=== PATIENT | female | born 1975 | race Hispanic/Latino ===

== ENCOUNTER 2020-12-20 00:30 | Emergency (ER) | payer OTHER ==
[2020-12-20] MEDS ORDERED: DEXAMETHASONE SOD PHOSPHATE 10MG/ML 1ML VIAL ONE (01:19)
[2020-12-20] MEDS ORDERED: LORAZEPAM 1 MG TABLET ONE (01:20)
[2020-12-20] MEDS ORDERED: KETOROLAC TROMETHAMINE 60 MG/2 ML VIAL ONE (01:20)
[2020-12-20] MEDS ORDERED: HYDROMORPHONE 1 MG/1 ML AMP ONE (01:20)
== END 2020-12-20 03:15 | disposition home or self-care (01) ==
LOC: EDH 00:30
DX: M43.6 Torticollis (principal); Z98.51 Tubal ligation status; Z98.890 Other specified postprocedural states
CPT/HCPCS: 72040; 96372 ×3; 99284; J1100; J1170; J1885

== ENCOUNTER 2021-05-19 09:44 | Day surgery (SDC) | payer MEDICAID ==
[2021-05-18 11:35] LABS: HEMATOCRIT 39.2 % (36-48)
[~2021-05-19] VITALS: Ht 152.4 cm; Wt 77.0 kg
[2021-05-19 13:37] VITALS: BP 137/68
[2021-05-20] VITALS (17 sets, daily range): BP systolic 108–136; BP diastolic 54–78
[2021-05-20] MEDS ORDERED: LACTATED RINGERS 1000ML 1,000 ML IV ONE (10:01)
[2021-05-20] MEDS: CEFAZOLIN SODIUM 1 GM VIAL ONE ×2 (10:55→11:45)
[2021-05-20] MEDS ORDERED: GENTAMICIN SULFATE 80 MG/2 ML VIAL ONE (10:55)
[2021-05-20] MEDS ORDERED: CEFAZOLIN SODIUM 1 GM VIAL ONE (10:55)
[2021-05-20] MEDS ORDERED: METHYLENE BLUE 5 MG/ML AMP ONE (10:56)
[2021-05-20] MEDS ORDERED: LIDOCAINE HCL MPF 1% 5ML VIAL ONE (11:25)
[2021-05-20] MEDS ORDERED: MIDAZOLAM HCL 1 MG/ML 2ML VIAL ONE (11:25)
[2021-05-20] MEDS ORDERED: PROPOFOL 10 MG/ML 20ML VIAL IV ONE (11:26)
[2021-05-20] MEDS ORDERED: ROCURONIUM 10MG/1ML SYR 10 MG/ML ML ONE (11:26)
[2021-05-20] MEDS ORDERED: FENTANYL CITRATE PF 50 MCG/1 ML 2ML VIAL ONE (11:26)
[2021-05-20] MEDS ORDERED: LIDOCAINE 1%-EPI 1:100,000 20 ML VIAL IJ SCH (11:30)
[2021-05-20] MEDS ORDERED: EPHEDRINE SULFATE 50 MG/ML AMPULE ONE (12:34)
[2021-05-20] MEDS ORDERED: BACITRACIN 28.4 GM OINT TP ONE (12:58)
[2021-05-20] MEDS ORDERED: GLYCOPYRROLATE 1 MG/5 ML SYRINGE ONE (13:00)
[2021-05-20] MEDS ORDERED: NEOSTIGMINE 5MG/5ML SYR IV ONE (13:01)
[2021-05-20] MEDS ORDERED: MEPERIDINE-PF 25 MG/ML SYG ONE (13:28)
[2021-05-25] MEDS ORDERED: CEFAZOLIN SODIUM 1 GM VIAL IVP SCH (06:00)
== END 2021-05-20 15:05 | disposition home or self-care (01) ==
LOC: DAH 09:44
PROVIDERS: ATTEND Plastic Surgery
DX: L73.2 Hidradenitis suppurativa (principal); L90.5 Scar conditions and fibrosis of skin; S41.102A Unspecified open wound of left upper arm, initial encounter; E66.9 Obesity, unspecified; Z79.899 Other long term (current) drug therapy; Z98.890 Other specified postprocedural states; Z83.3 Family history of diabetes mellitus; X58.XXXA Exposure to other specified factors, initial encounter
CPT/HCPCS: 13121; 13122; 15002; 15003 ×3; 15271; 15272; 36415; 81025; 85014; 85018; 87426; 88304; A4215; A4221; A4222; A4223; A4606; A4649; A4663; A6223; A6260; J0690 ×2; J1580; J2175; J2250; J2710; J3010; J3490 ×5; J7040; J7120; Q4105; J2704; Q9968

== ENCOUNTER 2021-06-03 07:30 | Day surgery (SDC) | payer MEDICAID ==
[2021-06-02 15:55] VITALS: BP 121/52
[~2021-06-03] VITALS: Ht 152.4 cm; Wt 75.9 kg
[2021-06-03] VITALS (17 sets, daily range): BP systolic 93–129; BP diastolic 46–72
[2021-06-03] MEDS ORDERED: LACTATED RINGERS 1000ML 1,000 ML IV ONE (08:21)
[2021-06-03] MEDS: CEFAZOLIN SODIUM 1 GM VIAL ONE ×2 (08:26→09:38)
[2021-06-03] MEDS ORDERED: CEFAZOLIN SODIUM 1 GM VIAL ONE (08:55)
[2021-06-03] MEDS ORDERED: BUPIVACAINE/EPI/PF 0.25% 30ML VIAL IJ ONE (08:55)
[2021-06-03] MEDS ORDERED: GENTAMICIN SULFATE 80 MG/2 ML VIAL ONE (08:55)
[2021-06-03] MEDS ORDERED: LIDOCAINE PF 100MG/5ML (2%) SYRINGE 5ML ONE (09:06)
[2021-06-03] MEDS ORDERED: DEXAMETHASONE SOD PHOSPHATE 10MG/ML 1ML VIAL ONE (09:06)
[2021-06-03] MEDS ORDERED: ONDANSETRON 4MG INJ ONE (09:06)
[2021-06-03] MEDS ORDERED: MIDAZOLAM HCL 1 MG/ML 2ML VIAL ONE (09:06)
[2021-06-03] MEDS ORDERED: PROPOFOL 10 MG/ML 20ML VIAL IV ONE (09:07)
[2021-06-03] MEDS ORDERED: FENTANYL CITRATE PF 50 MCG/1 ML 2ML VIAL ONE (09:07)
[2021-06-03] MEDS ORDERED: GLYCOPYRROLATE 1 MG/5 ML SYRINGE ONE (09:24)
[2021-06-03] MEDS ORDERED: EPHEDRINE SULFATE 50 MG/ML AMPULE ONE (09:32)
== END 2021-06-03 12:25 | disposition home or self-care (01) ==
LOC: DAH 07:30
PROVIDERS: ATTEND Plastic Surgery
DX: S41.102A Unspecified open wound of left upper arm, initial encounter (principal); Z20.822 Contact with and (suspected) exposure to COVID-19; L90.5 Scar conditions and fibrosis of skin; L73.2 Hidradenitis suppurativa; K21.9 Gastro-esophageal reflux disease without esophagitis; E66.9 Obesity, unspecified; Z98.890 Other specified postprocedural states; Z98.51 Tubal ligation status; Z98.891 History of uterine scar from previous surgery; Z83.3 Family history of diabetes mellitus; Z79.899 Other long term (current) drug therapy; Z68.44 Body mass index [BMI] 60.0-69.9, adult
CPT/HCPCS: 15002; 15100; 81025; 87635; A4215; A4221; A4222; A4223; A4600; A4606; A4663; A4930; C9803; J0690 ×2; J1100; J1580; J2250; J2405; J3010; J3490 ×4; J7120; S0020; J2001; J2704

== ENCOUNTER 2021-06-26 08:02 | Emergency (ER) | payer MEDICAID ==
[~2021-06-26] VITALS: Ht 154.9 cm; Wt 74.4 kg
[2021-06-26] MEDS ORDERED: SOLU-MEDROL 125MG VIAL IVP ONE (08:30)
[2021-06-26] MEDS ORDERED: FAMOTIDINE 20MG VIAL IV ONE (08:30)
[2021-06-26] MEDS ORDERED: DEXAMETHASONE SOD PHOSPHATE 4 MG/ML 1ML VIAL IM SCH (09:30)
[2021-06-26] MEDS ORDERED: LORA10TA7 PO (09:42)
[2021-06-26] MEDS ORDERED: PRED10TA23 PO (09:42)
[2021-06-26] MEDS ORDERED: 0.9%NACL 1000ML 1,000 ML IV ONE ×2 (10:13→10:30)
[2021-06-26 10:26] VITALS: BP 117/58
[2021-06-26] MEDS ORDERED: PREDNISOLONE 15 MG/5 ML SOLN PO SCH (10:30)
[2021-06-26] MEDS ORDERED: DiphenhydrAMINE HCL 50 MG/ML VIAL IV ONE (10:30)
== END 2021-06-26 11:24 | disposition home or self-care (01) ==
LOC: EDH 08:02
DX: T78.49XA Other allergy, initial encounter (principal); X58.XXXA Exposure to other specified factors, initial encounter
CPT/HCPCS: 81025; 96361; 96372; 96374; 96375; 99284; J1100; J1200; J2930; J7030; S0028; J3490